=== PATIENT | female | born 1995 | race Two or more races ===

== ENCOUNTER 2022-02-16 12:05 | Inpatient (IN) | payer MEDICAID, OTHER ==
[~2022-02-16] VITALS: Ht 167.6 cm; Wt 122.5 kg
[~2022-02-16 12:05] MED LIST: METHYLERGONOVINE MALEATE 0.2 MG/ML ONE
[2022-02-16] MEDS ORDERED: METHYLERGONOVINE MALEATE 0.2 MG/ML IM PRN ×2 (12:30→17:15)
[2022-02-16] MEDS ORDERED: BUTORPHANOL TARTRATE 2 MG/ML VIAL IV PRN (12:30)
[2022-02-16] MEDS ORDERED: LIDOCAINE HCL 1% 20ML VIAL (Pyxis) INJ INFIL SCH (12:30)
[2022-02-16] MEDS ORDERED: LACTATED RINGERS 1,000 ML IV SCH (13:00)
[2022-02-16] MEDS ORDERED: PENICILLIN G POTASSIUM 5 MMU in DEXT 5% WATER 100 ML IV SCH (13:00)
[2022-02-16 15:28] LABS: INR 0.9; PARTIAL THROMBOPLASTIN TIME 27.8 sec (23.4-31.0); PROTHROMBIN TIME 9.6 sec (9.6-11.0)
[2022-02-16 15:32] LABS: BASOPHILS % 0.4 % (0.0-2.0); EOSINOPHILS % 0.6 % (0.0-5.0); HEMATOCRIT. 34.1 % (36.0-48.0); HEMOGLOBIN. 11.5 g/dL (12.0-16.0); LYMPHOCYTES % 17.6 % (20.0-50.0); MEAN CORPUSCULAR HEMOGLOBIN 28.3 pg (28.0-32.0); MEAN CORPUSCULAR VOLUME 83.7 fL (81.0-99.0); MEAN PLATELET VOLUME 9.3 fl (7.4-10.4); MONOCYTES % 6.6 % (2.0-8.0); NEUTROPHILS % 74.8 % (40.0-76.0); PLATELET 189 x1000/uL (130-400); RED BLOOD CELL COUNT 4.07 mill/uL (4.2-5.4); RED CELL DISTRIBUTION WIDTH 16.1 % (11.6-14.6)
[2022-02-16] MEDS: DEXT 5%/LR + PITOCIN 20UNITS/L 1,000 ML IV SCH ×2 (15:52→16:10)
[2022-02-16 16:01] LABS: HEPATITIS B SURFACE ANTIGEN NEGATIVE
[2022-02-16] MEDS ORDERED: PENICILLIN G POTASSIUM 2.5 MMU in DEXTROSE 5% WATER 50 ML IV SCH (17:00)
[2022-02-16] MEDS ORDERED: LANOLIN OINT 7GM TUBE TOP PRN (17:15)
[2022-02-16] MEDS ORDERED: HEMORRHOIDAL SUPP PR PRN (17:15)
[2022-02-16] MEDS ORDERED: IBUPROFEN 400MG TABLET PO PRN (17:15)
[2022-02-16] MEDS ORDERED: GLYCERIN/WITCH HAZEL LEAF MEDICATED PAD TOP PRN (17:15)
[2022-02-16] MEDS ORDERED: DEXT 5%/LR + PITOCIN 20UNITS/L 1,000 ML IV SCH (17:15)
[2022-02-16] MEDS ORDERED: RHO(D) IMMUNE GLOBULIN 300 MCG/SYR IM PRN (17:15)
[2022-02-16] MEDS ORDERED: DIPHENHYDRAMINE 25MG CAPSULE PO PRN (17:15)
[2022-02-16] MEDS ORDERED: OXYCODONE HCL/ACETAMINOPHEN 5/325MG TABLET PO PRN (17:15)
[2022-02-16] MEDS ORDERED: BENZOCAINE/LANOLIN/ALOE VERA SPRAY TOP PRN (17:15)
[2022-02-16 17:21] LABS: CLARITY URINE CLEAR (CLEAR); COLOR URINE YELLOW (YELLOW); KETONES URINE TRACE (NEGATIVE); LEUKOCYTE ESTERASE URINE 3+ (NEGATIVE); NITRITE URINE NEGATIVE (NEGATIVE); OCCULT BLOOD URINE 2+ (NEGATIVE); PH URINE 6.5 (4.5-8.0); PROTEIN URINE NEGATIVE (NEGATIVE); SPECIFIC GRAVITY URINE 1.008 (1.005-1.030); UROBILINOGEN URINE 0.2 E.U./dL (0.2-1.0)
[2022-02-16 17:41] LABS: *AMPHETAMINES SCREEN URINE NEGATIVE (NEGATIVE); *BARBITURATES SCREEN URINE NEGATIVE (NEGATIVE); *BENZODIAZEPINES SCREEN URINE NEGATIVE (NEGATIVE); *COCAINE SCREEN URINE NEGATIVE (NEGATIVE); CANNABINOID URINE SCREEN NEGATIVE (NEGATIVE); METHADONE URINE SCREEN NEGATIVE (NEGATIVE); OPIATES URINE SCREEN NEGATIVE (NEGATIVE); PHENCYCLIDINE URINE SCREEN NEGATIVE (NEGATIVE)
[2022-02-16 18:00] VITALS: BP 132/83
[2022-02-16] MEDS ORDERED: PNV1TABL76 PO (18:00)
[2022-02-16] MEDS ORDERED: NALOXONE HCL 0.4MG/ML VIAL IV PRN (18:15)
[2022-02-16 19:30] VITALS: BP 128/85
[2022-02-16] MEDS: MAGNESIUM/ALUMINUM HYDROXIDE/SIMETHICONE 30ML UDC PO SCH (20:40)
[2022-02-16] MEDS: DOCUSATE SODIUM 100MG CAPSULE PO SCH (20:40)
[2022-02-16] MEDS ORDERED: METHYLERGONOVINE MALEATE 0.2MG TABLET PO SCH (21:00)
[2022-02-17 04:00] VITALS: BP 120/66
[2022-02-17 06:15] LABS: BASOPHILS % 0.4 % (0.0-2.0); EOSINOPHILS % 1.3 % (0.0-5.0); HEMATOCRIT. 28.3 % (36.0-48.0); HEMOGLOBIN. 9.6 g/dL (12.0-16.0); LYMPHOCYTES % 25.3 % (20.0-50.0); MEAN CORPUSCULAR HEMOGLOBIN 28.4 pg (28.0-32.0); MEAN CORPUSCULAR VOLUME 83.8 fL (81.0-99.0); MEAN PLATELET VOLUME 9.4 fl (7.4-10.4); MONOCYTES % 6.5 % (2.0-8.0); NEUTROPHILS % 66.5 % (40.0-76.0); PLATELET 154 x1000/uL (130-400); RED BLOOD CELL COUNT 3.38 mill/uL (4.2-5.4); RED CELL DISTRIBUTION WIDTH 15.9 % (11.6-14.6)
[2022-02-17 07:30] VITALS: BP 108/70
[2022-02-17] MEDS ORDERED: FERROUS SULFATE 325MG TABLET PO SCH (07:30)
[2022-02-17] MEDS: IBUPROFEN 800MG TABLET PO PRN ×2 (07:55→21:09)
[2022-02-17] MEDS: MAGNESIUM/ALUMINUM HYDROXIDE/SIMETHICONE 30ML UDC PO SCH ×2 (07:55→21:09)
[2022-02-17] MEDS ORDERED: PRENATAL VIT/FE FUMARATE/FA TABLET PO SCH (09:00)
[2022-02-17 16:10] VITALS: BP 123/80
[2022-02-17 20:00] VITALS: BP 132/86
[2022-02-17] MEDS: DOCUSATE SODIUM 100MG CAPSULE PO SCH (21:09)
[2022-02-18 03:59] VITALS: BP 106/60
[2022-02-18 08:05] VITALS: BP 125/77
== END 2022-02-18 11:15 | disposition home or self-care (01) | DRG 560 ==
LOC: OBSVTOIN 12:05 → 8 EST LDRP 12:05 → 8EST 17:20
PROVIDERS: ADMIT Obstetrics & Gynecology; ATTEND Obstetrics & Gynecology
PROC: 10E0XZZ Delivery of Products of Conception, External Approach (ICD-10-PCS; principal; 2022-02-16)
DX: O80 Encounter for full-term uncomplicated delivery (principal); Z37.0 Single live birth; Z3A.34 34 weeks gestation of pregnancy
CPT/HCPCS: 36415; 76805; 76818; 80305; 81003; 85025; 86592; 86703; 86762; 86850; 86900; 87340; G0378; J2210; J2540; J2590; J7060; J7120